=== PATIENT | male | born 1965 | race Caucasian/White ===

== ENCOUNTER 2024-05-13 08:24 | Outpatient (CLI) | payer OTHER, SELFPAY | END 2024-05-13 08:25 | disposition home or self-care (01) | LOC: NFLDREF 05-15 04:21 | PROVIDERS: PCP Family Medicine; Referring Provider Family Medicine; Visit Provider Family Medicine | DX: Z12.5 Encounter for screening for malignant neoplasm of prostate (principal); Z13.6 Encounter for screening for cardiovascular disorders | CPT/HCPCS: 80053; 80061; G0103 ==

== ENCOUNTER 2024-05-18 08:18 | Outpatient (CLI) | payer OTHER, SELFPAY ==
--- NOTE | 2024-05-18 09:30 | W.ANESCHARGE ---
Anesthesia Charges Start Date/Time Anesthesia Start Date: 05/18/24 Anesthesia Start Time: 09:00 Stop Date/Time Anesthesia Stop Date: 05/18/24 Anesthesia Stop Time: 09:24
--- NOTE | 2024-05-18 11:02 | W.ANESCHARGE ---
Anesthesia Charges Start Date/Time Anesthesia Start Date: 05/18/24 Anesthesia Start Time: 09:00 Stop Date/Time Anesthesia Stop Date: 05/18/24 Anesthesia Stop Time: 09:24
== END 2024-05-18 08:19 | disposition home or self-care (01) ==
LOC: OP CLINIC 08:18
PROVIDERS: PCP Family Medicine; Visit Provider Internal Medicine
DX: Z12.11 Encounter for screening for malignant neoplasm of colon (principal); K63.5 Polyp of colon
CPT/HCPCS: 00811; 45380; 88305; J2704

== ENCOUNTER 2024-08-03 19:26 | Outpatient (CLI) | payer OTHER, SELFPAY ==
--- NOTE | 2024-08-18 13:11 | W.PM.SLEEP ---
Sleep Study Details Details Interpreting Provider: Yamile Date of Sleep Study: 08/03/24 Sleep Study Details: STUDY TYPE: Home unattended ? BMI:? 26.4 ORDERING PROVIDER:Flip Kruger INDICATION:? Concerned about sleep apnea ? SLEEP SUMMARY:? 454 minutes monitored RESPIRATORY SUMMARY:? AHI 26.5, left lateral 2.3, supine 53.7, right lateral 3.0 Low oxygen 69 12.4% of study oxygen less than 90% Snoring 86.5% PERIODIC LIMB MOVEMENTS OF SLEEP:? Not record CARDIAC:? Range 54-107, mean 67.7 beats per minute IMPRESSION:? Moderate obstructive sleep apnea overall with severe apnea in the supine position and no clinically significant apnea in the lateral positions RECOMMENDATION: Treatment options include positional therapy with avoidance of supine sleep, CPAP, dental appliance and/or airway expansion surgery.
== END 2024-08-03 19:27 | disposition home or self-care (01) ==
LOC: SLEEP 19:27
PROVIDERS: PCP Family Medicine; Visit Provider Family Medicine
DX: G47.33 Obstructive sleep apnea (adult) (pediatric) (principal)
CPT/HCPCS: 95806

== ENCOUNTER 2025-04-20 07:55 | Outpatient (CLI) | payer OTHER, SELFPAY | END 2025-04-20 07:56 | disposition home or self-care (01) | LOC: NFLDREF 04-22 17:30 | PROVIDERS: PCP Family Medicine; Referring Provider Family Medicine; Visit Provider Family Medicine | DX: I10 Essential (primary) hypertension (principal); Z13.6 Encounter for screening for cardiovascular disorders | CPT/HCPCS: 80053; 80061 ==